=== PATIENT | male | born 1995 | race Asian ===

== ENCOUNTER 2022-04-28 03:20 | Emergency (ER) | payer MEDICAID ==
[~2022-04-28] VITALS: Ht 175.3 cm; Wt 90.7 kg
[~2022-04-28 03:20] MED LIST: HYDR-3682 PO; METH4PAK PO
[2022-04-28] MEDS ORDERED: OXYCODONE W/ ACETAMINOPHEN 5/325MG TABLET PO ONE (05:00)
[2022-04-28 05:15] VITALS: BP 143/87
== END 2022-04-28 05:16 | disposition home or self-care (01) ==
LOC: ER 03:20 → EDUNIT# 03:20 → EDBD 03:20 → ER 05:16
DX: S09.8XXA Other specified injuries of head, initial encounter (principal); G44.319 Acute post-traumatic headache, not intractable; W20.8XXA Other cause of strike by thrown, projected or falling object, initial encounter; Y93.89 Activity, other specified; Y92.89 Other specified places as the place of occurrence of the external cause; Y99.8 Other external cause status
CPT/HCPCS: 70450; 72125